=== PATIENT | male | born 1970 | race Caucasian/White ===

== ENCOUNTER 2017-02-05 12:41 | Emergency (ER) | payer BC, OTHER | END 2017-02-05 13:31 | disposition home or self-care (01) | LOC: ER 12:41 | DX: M25.511 Pain in right shoulder (principal); M79.601 Pain in right arm; I10 Essential (primary) hypertension; E03.9 Hypothyroidism, unspecified; E66.9 Obesity, unspecified; Z79.899 Other long term (current) drug therapy ==